=== PATIENT | female | born 1945 | race Two or more races ===

== ENCOUNTER 2022-06-17 11:14 | Inpatient (IN) | payer MEDICAID, OTHER ==
[~2022-06-17] VITALS: Ht 152.4 cm; Wt 80.8 kg
[2022-06-17] MEDS ORDERED: SODIUM CHLORIDE 0.9% 1,000 ML IV ONE (11:30)
[2022-06-17] MEDS ORDERED: dilTIAZem 25 MG/5 ML VIAL IV ONE ×2 (11:30→13:45)
[2022-06-17] MEDS ORDERED: ASPirin 81 mg TAB PO ONE (11:30)
[2022-06-17 12:10] LABS: Basophils # (auto) 0.1 10 ^3/uL (0-0.2); Basophils % (auto) 1.1 % (0.0-2.0); Eosinophils # (auto) 0 10 ^3/uL (0-0.8); Eosinophils % (auto) 0.7 % (0.0-7.0); Hematocrit 39.9 % (36.0-46.0); Hemoglobin 13.4 g/dL (12.2-16.2); Lymphocytes # (auto) 0.8 10 ^3/uL (0.4-5.4); Lymphocytes % (auto) 12.5 % (10.0-50.0); Mean Corpuscular Hemoglobin 30.3 pg (28.0-32.0); Mean Corpuscular Hgb Conc. 33.7 g/dL (32.0-36.0); Mean Corpuscular Volume 90.2 fL (80.0-100.0); Monocytes # (auto) 0.5 10 ^3/uL (0-1.3); Monocytes % (auto) 7.8 % (0.0-12.0); Neutrophils # (auto) 5.3 10 ^3/uL (1.6-8.6); Neutrophils % (auto) 77.9 % (37.0-80.0); Nucleated Red Blood Cells % 0.2 %; Red Blood Cells 4.42 10^6/uL (4.0-5.20); Red Cell Distribution Width 13.5 % (11.8-14.3); White Blood Cell 6.8 10^3/uL (4.4-10.8)
[2022-06-17 12:14] LABS: Albumin 3.6 g/dL (3.4-5.0); Calcium 8.3 mg/dL (8.5-10.1); Magnesium 2.1 mg/dL (1.6-2.6); Potassium 3.1 mmol/L (3.5-5.1)
[2022-06-17 12:19] LABS: BUN/Creatinine Ratio 14.5; Bilirubin, Total 1.2 mg/dL (0.2-1.0); Total Protein 7.6 g/dL (6.4-8.2)
[2022-06-17] MEDS ORDERED: FUROSEMIDE 40 MG/4 ML VIAL IV ONE (13:30)
[2022-06-17] MEDS ORDERED: dilTIAZem 125mg/125ml BAG KIT 125 ML IV ONE (13:45)
[2022-06-17] MEDS ORDERED: MORPHINE SULFATE INJ 2 MG/ml SYRG IV PRN (15:30)
[2022-06-17] MEDS ORDERED: NITROGLYCERIN 0.4 MG SL TAB SL PRN (15:30)
[2022-06-17] MEDS ORDERED: METOPROLOL SUCCINATE XL 50 MG TAB PO ONE (15:30)
[2022-06-17] MEDS ORDERED: POTASSIUM EFFERVESENT TAB 25 MEQ PO ONE ×2 (15:30→15:45)
[2022-06-17] MEDS ORDERED: ENOXAPARIN SOD 100 MG/1 ML SYRINGE SC ONE ×2 (15:30→15:45)
[2022-06-17] MEDS ORDERED: FUROSEMIDE 20 MG/2 ML VIAL IV ONE (15:45)
[2022-06-17] MEDS ORDERED: cefTRIAXone 1GM/50ML D5W 50 ML IV ONE (15:45)
[2022-06-17] MEDS ORDERED: AZITHROMYCIN 500MG/ 250ML 250 ML IV ONE (15:45)
[2022-06-17 16:14] LABS: Cholesterol 124 mg/dL (< 200)
[2022-06-17 16:15] LABS: HDL Cholesterol 46 mg/dL (40-59); LDL Cholesterol 80 mg/dL (< 100); Triglycerides 65 mg/dL (< 150)
[2022-06-17] MEDS: FUROSEMIDE 40 MG/4 ML VIAL IV SCH (18:14)
[2022-06-17 18:15] LABS: Urine Bacteria NONE SEEN /hpf (None Seen); Urine Hyaline Cast FEW /lpf (0 - 2); Urine Mucus FEW (None Seen); Urine WBC 1 /hpf (0 - 5)
[2022-06-17 18:17] LABS: Urine Blood Negative /uL (Negative)
[2022-06-17] MEDS ORDERED: ENOXAPARIN SOD 100 MG/1 ML SYRINGE SC SCH (22:00)
[2022-06-17] MEDS: ENOXAPARIN SOD 80 MG/0.8ML SYRINGE SC SCH (22:14)
[2022-06-17] MEDS: ATORVASTATIN 20 MG TAB PO SCH (22:14)
[2022-06-18] MEDS ORDERED: dilTIAZem 125mg/125ml BAG KIT 100 ML IV SCH (00:15)
[2022-06-18] MEDS ORDERED: IOHEXOL 350 MG/ML 100ML IJ ONE (00:31)
[2022-06-18 05:05] LABS: Basophils # (auto) 0.1 10 ^3/uL (0-0.2); Basophils % (auto) 0.9 % (0.0-2.0); Eosinophils # (auto) 0.1 10 ^3/uL (0-0.8); Eosinophils % (auto) 1.3 % (0.0-7.0); Hematocrit 37.1 % (36.0-46.0); Hemoglobin 12.9 g/dL (12.2-16.2); Mean Corpuscular Hemoglobin 31.3 pg (28.0-32.0); Mean Corpuscular Hgb Conc. 34.6 g/dL (32.0-36.0); Mean Corpuscular Volume 90.2 fL (80.0-100.0); Monocytes # (auto) 0.5 10 ^3/uL (0-1.3); Monocytes % (auto) 8.7 % (0.0-12.0); Neutrophils # (auto) 4.4 10 ^3/uL (1.6-8.6); Neutrophils % (auto) 72.1 % (37.0-80.0); Nucleated Red Blood Cells % 0.1 %; Red Blood Cells 4.12 10^6/uL (4.0-5.20)
[2022-06-18 05:21] LABS: Albumin 3.4 g/dL (3.4-5.0); Potassium 3.4 mmol/L (3.5-5.1)
[2022-06-18 05:26] LABS: BUN/Creatinine Ratio 19.4; Bilirubin, Total 0.7 mg/dL (0.2-1.0); Total Protein 7.3 g/dL (6.4-8.2)
[2022-06-18] MEDS: FUROSEMIDE 40 MG/4 ML VIAL IV SCH (06:45)
[2022-06-18] MEDS: cefTRIAXone 1GM/50ML D5W 50 ML IV SCH (08:31)
[2022-06-18] MEDS ORDERED: ASPirin 81 mg TAB PO SCH (10:00)
[2022-06-18] MEDS ORDERED: FUROSEMIDE 20 MG/2 ML VIAL IV SCH (10:00)
[2022-06-18] MEDS ORDERED: AZITHROMYCIN 500MG/ 250ML 250 ML IV SCH (10:00)
[2022-06-18] MEDS ORDERED: METOPROLOL SUCCINATE XL 50 MG TAB PO SCH (10:00)
[2022-06-18] MEDS: POTASSIUM CHL 10 Meq TABLET PO SCH (11:05)
[2022-06-18] MEDS: ENOXAPARIN SOD 80 MG/0.8ML SYRINGE SC SCH (11:05)
[2022-06-18] MEDS ORDERED: METOPROLOL TARTRATE 50 MG TAB PO ONE (17:00)
[2022-06-18 17:40] LABS: Hepatitis B Surface Antibody Negative (Negative)
[2022-06-18 18:18] LABS: Hepatitis A Total Antibody Positive (Negative)
[2022-06-18 18:58] LABS: Hepatitis C Antibody Negative (Negative)
[2022-06-18] MEDS ORDERED: dilTIAZem 25 MG/5 ML VIAL IV ONE (21:00)
[2022-06-18] MEDS: APIXABAN 5 MG TAB PO SCH (23:41)
[2022-06-18] MEDS: METOPROLOL TARTRATE 50 MG TAB PO SCH (23:41)
[2022-06-18] MEDS: ATORVASTATIN 20 MG TAB PO SCH (23:45)
[2022-06-19] MEDS ORDERED: dilTIAZem 125mg/125ml BAG KIT 125 ML IV SCH (00:15)
[2022-06-19] MEDS ORDERED: POTASSIUM EFFERVESENT TAB 25 MEQ PO ONE (07:45)
[2022-06-19] MEDS ORDERED: dilTIAZem HCL 180MG ER CAP PO ONE (07:45)
[2022-06-19] MEDS: cefTRIAXone 1GM/50ML D5W 50 ML IV SCH (09:58)
[2022-06-19] MEDS: APIXABAN 5 MG TAB PO SCH (10:10)
[2022-06-19] MEDS: METOPROLOL TARTRATE 50 MG TAB PO SCH ×2 (10:11→23:00)
[2022-06-19] MEDS: POTASSIUM CHL 10 Meq TABLET PO SCH (10:11)
[2022-06-19] MEDS: AZITHROMYCIN 250 MG TAB PO SCH (10:11)
[2022-06-19] MEDS ORDERED: FUROSEMIDE 40 MG/4 ML VIAL IV ONE (16:30)
[2022-06-19 22:00] VITALS: BP 141/83
[2022-06-19] MEDS: ATORVASTATIN 20 MG TAB PO SCH (22:57)
[2022-06-19] MEDS: ENOXAPARIN SOD 80 MG/0.8ML SYRINGE SC SCH (23:01)
[2022-06-20] VITALS (7 sets, daily range): BP systolic 128–173; BP diastolic 76–97
[2022-06-20 06:06] LABS: Basophils # (auto) 0.1 10 ^3/uL (0-0.2); Basophils % (auto) 0.9 % (0.0-2.0); Eosinophils # (auto) 0.1 10 ^3/uL (0-0.8); Eosinophils % (auto) 2.5 % (0.0-7.0); Hematocrit 37.5 % (36.0-46.0); Hemoglobin 12.6 g/dL (12.2-16.2); Lymphocytes # (auto) 1.2 10 ^3/uL (0.4-5.4); Lymphocytes % (auto) 20.6 % (10.0-50.0); Mean Corpuscular Hemoglobin 30.8 pg (28.0-32.0); Mean Corpuscular Hgb Conc. 33.6 g/dL (32.0-36.0); Mean Corpuscular Volume 91.7 fL (80.0-100.0); Monocytes # (auto) 0.6 10 ^3/uL (0-1.3); Monocytes % (auto) 9.6 % (0.0-12.0); Neutrophils # (auto) 3.8 10 ^3/uL (1.6-8.6); Neutrophils % (auto) 66.4 % (37.0-80.0); Red Blood Cells 4.09 10^6/uL (4.0-5.20); Red Cell Distribution Width 14.4 % (11.8-14.3); White Blood Cell 5.8 10^3/uL (4.4-10.8)
[2022-06-20 06:26] LABS: INR 1.08 (0.9-1.15); Partial Thromboplastin Time 37.3 sec (24.6-33.4)
[2022-06-20 06:34] LABS: BUN/Creatinine Ratio 36.2
[2022-06-20 06:35] LABS: Calcium 8.6 mg/dL (8.5-10.1)
[2022-06-20] MEDS: cefTRIAXone 1GM/50ML D5W 50 ML IV SCH (09:14)
[2022-06-20] MEDS: METOPROLOL TARTRATE 50 MG TAB PO SCH ×2 (09:15→21:13)
[2022-06-20] MEDS: ENOXAPARIN SOD 80 MG/0.8ML SYRINGE SC SCH ×2 (09:15→21:10)
[2022-06-20] MEDS: POTASSIUM CHL 10 Meq TABLET PO SCH (09:15)
[2022-06-20] MEDS: AZITHROMYCIN 250 MG TAB PO SCH (09:15)
[2022-06-20] MEDS: dilTIAZem HCL 180MG ER CAP PO SCH (09:15)
[2022-06-20] MEDS ORDERED: MET25T PO (10:05)
[2022-06-20] MEDS ORDERED: ASPirin 81 mg TAB PO ONE (11:45)
[2022-06-20] MEDS ORDERED: FUROSEMIDE 40 MG/4 ML VIAL IV ONE (11:45)
[2022-06-20] MEDS ORDERED: IPRATROPIUM BROM 0.5 MG/2.5ML INH SOL NEB PRN (12:00)
[2022-06-20] MEDS ORDERED: ALBUTEROL SULF 2.5 MG/0.5ML(0.5%) NEB SOLN NEB PRN (12:00)
[2022-06-20] MEDS ORDERED: DOCUSATE SOD 100 MG CAP PO PRN (12:30)
[2022-06-20] MEDS: hydrALAZINE HCL 20 MG/ML VL IV PRN (17:46)
[2022-06-20] MEDS: FUROSEMIDE 40 MG/4 ML VIAL IV SCH (17:46)
[2022-06-20] MEDS: ATORVASTATIN 20 MG TAB PO SCH (21:10)
[2022-06-21] MEDS: ALBUTEROL SULF 2.5 MG/0.5ML(0.5%) NEB SOLN NEB SCH ×4 (00:49→18:56)
[2022-06-21] MEDS: IPRATROPIUM BROM 0.5 MG/2.5ML INH SOL NEB SCH ×4 (00:50→18:56)
[2022-06-21 05:00] VITALS: BP 144/83
[2022-06-21] MEDS: FUROSEMIDE 40 MG/4 ML VIAL IV SCH ×2 (05:55→17:15)
[2022-06-21 08:00] VITALS: BP 156/89
[2022-06-21] MEDS: dilTIAZem HCL 180MG ER CAP PO SCH (08:25)
[2022-06-21] MEDS: ASPirin 81 mg TAB PO SCH (08:25)
[2022-06-21] MEDS: AZITHROMYCIN 250 MG TAB PO SCH (08:26)
[2022-06-21] MEDS: METOPROLOL TARTRATE 50 MG TAB PO SCH ×2 (08:26→22:00)
[2022-06-21] MEDS: POTASSIUM CHL 10 Meq TABLET PO SCH (08:26)
[2022-06-21] MEDS: cefTRIAXone 1GM/50ML D5W 50 ML IV SCH (08:27)
[2022-06-21] MEDS: ENOXAPARIN SOD 80 MG/0.8ML SYRINGE SC SCH ×2 (08:27→22:00)
[2022-06-21 12:00] VITALS: BP 149/93
[2022-06-21 16:00] VITALS: BP 149/77
[2022-06-21 22:00] VITALS: BP 138/87
[2022-06-21] MEDS: ATORVASTATIN 20 MG TAB PO SCH (22:00)
[2022-06-22] MEDS: ALBUTEROL SULF 2.5 MG/0.5ML(0.5%) NEB SOLN NEB SCH ×4 (00:39→20:05)
[2022-06-22] MEDS: IPRATROPIUM BROM 0.5 MG/2.5ML INH SOL NEB SCH ×4 (00:39→20:05)
[2022-06-22 05:00] VITALS: BP 165/89
[2022-06-22] MEDS: hydrALAZINE HCL 20 MG/ML VL IV PRN (06:11)
[2022-06-22] MEDS: FUROSEMIDE 40 MG/4 ML VIAL IV SCH ×2 (06:12→18:02)
[2022-06-22] MEDS: cefTRIAXone 1GM/50ML D5W 50 ML IV SCH (08:07)
[2022-06-22 08:08] VITALS: BP 135/64
[2022-06-22 09:00] VITALS: BP 135/64
[2022-06-22] MEDS: ASPirin 81 mg TAB PO SCH (10:58)
[2022-06-22] MEDS: POTASSIUM CHL 10 Meq TABLET PO SCH (10:58)
[2022-06-22] MEDS: AZITHROMYCIN 250 MG TAB PO SCH (10:58)
[2022-06-22] MEDS: METOPROLOL TARTRATE 50 MG TAB PO SCH ×2 (10:59→22:13)
[2022-06-22] MEDS: dilTIAZem HCL 180MG ER CAP PO SCH (10:59)
[2022-06-22] MEDS: ENOXAPARIN SOD 80 MG/0.8ML SYRINGE SC SCH ×2 (11:00→22:17)
[2022-06-22 14:14] VITALS: BP 142/69
[2022-06-22 16:52] VITALS: BP 136/71
[2022-06-22 22:00] VITALS: BP 158/108
[2022-06-22] MEDS: ATORVASTATIN 20 MG TAB PO SCH (22:12)
[2022-06-23] VITALS (8 sets, daily range): BP systolic 94–155; BP diastolic 56–106
[2022-06-23] MEDS: ALBUTEROL SULF 2.5 MG/0.5ML(0.5%) NEB SOLN NEB SCH ×5 (00:05→23:51)
[2022-06-23] MEDS: IPRATROPIUM BROM 0.5 MG/2.5ML INH SOL NEB SCH ×5 (00:05→23:51)
[2022-06-23] MEDS: FUROSEMIDE 40 MG/4 ML VIAL IV SCH ×2 (05:21→17:15)
[2022-06-23] MEDS: hydrALAZINE HCL 20 MG/ML VL IV PRN (05:22)
[2022-06-23 06:12] LABS: Basophils # (auto) 0.1 10 ^3/uL (0-0.2); Basophils % (auto) 0.8 % (0.0-2.0); Eosinophils # (auto) 0.3 10 ^3/uL (0-0.8); Eosinophils % (auto) 3.8 % (0.0-7.0); Hematocrit 40.3 % (36.0-46.0); Hemoglobin 13.9 g/dL (12.2-16.2); Lymphocytes # (auto) 2.2 10 ^3/uL (0.4-5.4); Lymphocytes % (auto) 29.7 % (10.0-50.0); Mean Corpuscular Hemoglobin 30.8 pg (28.0-32.0); Mean Corpuscular Hgb Conc. 34.5 g/dL (32.0-36.0); Mean Corpuscular Volume 89.3 fL (80.0-100.0); Monocytes # (auto) 0.6 10 ^3/uL (0-1.3); Monocytes % (auto) 7.8 % (0.0-12.0); Neutrophils # (auto) 4.3 10 ^3/uL (1.6-8.6); Neutrophils % (auto) 57.9 % (37.0-80.0); Nucleated Red Blood Cells % 0.2 %; Red Blood Cells 4.52 10^6/uL (4.0-5.20); Red Cell Distribution Width 13.8 % (11.8-14.3); White Blood Cell 7.5 10^3/uL (4.4-10.8)
[2022-06-23 06:25] LABS: INR 1.07 (0.9-1.15); Partial Thromboplastin Time 38.9 sec (24.6-33.4)
[2022-06-23 06:30] LABS: BUN/Creatinine Ratio 25.6; Calcium 8.7 mg/dL (8.5-10.1)
[2022-06-23 06:39] LABS: Potassium 2.9 mmol/L (3.5-5.1)
[2022-06-23] MEDS ORDERED: GADOTERATE MEG 10 MMOL/20ml INJ (0.5MMOL/ml) IV ONE (08:21)
[2022-06-23] MEDS ORDERED: POTASSIUM CHL 20 Meq TABLET PO ONE (08:30)
[2022-06-23] MEDS: cefTRIAXone 1GM/50ML D5W 50 ML IV SCH (09:14)
[2022-06-23] MEDS: ASPirin 81 mg TAB PO SCH (09:15)
[2022-06-23] MEDS: dilTIAZem HCL 180MG ER CAP PO SCH (09:15)
[2022-06-23] MEDS: METOPROLOL TARTRATE 50 MG TAB PO SCH ×2 (09:16→22:35)
[2022-06-23] MEDS: AZITHROMYCIN 250 MG TAB PO SCH (09:16)
[2022-06-23] MEDS: POTASSIUM CHL 10 Meq TABLET PO SCH (09:16)
[2022-06-23] MEDS: ENOXAPARIN SOD 80 MG/0.8ML SYRINGE SC SCH ×2 (09:56→23:34)
[2022-06-23] MEDS: ATORVASTATIN 20 MG TAB PO SCH (22:35)
[2022-06-24] VITALS (9 sets, daily range): BP systolic 122–138; BP diastolic 61–88
[2022-06-24] MEDS: FUROSEMIDE 40 MG/4 ML VIAL IV SCH ×2 (06:00→18:00)
[2022-06-24] MEDS: IPRATROPIUM BROM 0.5 MG/2.5ML INH SOL NEB SCH ×4 (06:01→19:02)
[2022-06-24] MEDS: ALBUTEROL SULF 2.5 MG/0.5ML(0.5%) NEB SOLN NEB SCH ×4 (06:01→19:02)
[2022-06-24 06:40] LABS: Basophils # (auto) 0.1 10 ^3/uL (0-0.2); Eosinophils # (auto) 0.3 10 ^3/uL (0-0.8); Eosinophils % (auto) 4.3 % (0.0-7.0); Hematocrit 37.8 % (36.0-46.0); Hemoglobin 12.9 g/dL (12.2-16.2); Lymphocytes # (auto) 2.2 10 ^3/uL (0.4-5.4); Lymphocytes % (auto) 30.3 % (10.0-50.0); Mean Corpuscular Hgb Conc. 34.2 g/dL (32.0-36.0); Mean Corpuscular Volume 90.7 fL (80.0-100.0); Monocytes # (auto) 0.7 10 ^3/uL (0-1.3); Monocytes % (auto) 9.4 % (0.0-12.0); Red Blood Cells 4.17 10^6/uL (4.0-5.20); Red Cell Distribution Width 14.1 % (11.8-14.3); White Blood Cell 7.2 10^3/uL (4.4-10.8)
[2022-06-24 07:05] LABS: Albumin 3.1 g/dL (3.4-5.0); BUN/Creatinine Ratio 30.5; Calcium 8.7 mg/dL (8.5-10.1); Potassium 4.1 mmol/L (3.5-5.1)
[2022-06-24 07:08] LABS: Bilirubin, Total 0.6 mg/dL (0.2-1.0); Total Protein 6.8 g/dL (6.4-8.2)
[2022-06-24] MEDS: POTASSIUM CHL 10 Meq TABLET PO SCH (10:00)
[2022-06-24] MEDS: ENOXAPARIN SOD 80 MG/0.8ML SYRINGE SC SCH ×2 (10:00→22:00)
[2022-06-24] MEDS: ASPirin 81 mg TAB PO SCH (10:13)
[2022-06-24] MEDS: METOPROLOL TARTRATE 50 MG TAB PO SCH ×2 (10:14→23:11)
[2022-06-24] MEDS: dilTIAZem HCL 180MG ER CAP PO SCH (10:14)
[2022-06-24] MEDS ORDERED: IOHEXOL 350 MG/ML 100ML IJ ONE (17:45)
[2022-06-24] MEDS ORDERED: LIDOCAINE 2%HCL (LOCAL ANESTH.) INJ 20ML MDV ONE (17:45)
[2022-06-24] MEDS ORDERED: fentaNYL CITRATE 100 MCG/2 ML VL ONE (17:50)
[2022-06-24] MEDS ORDERED: VERAPAMIL 2.5MG/ML INJ 2ML VIAL IV ONE (17:50)
[2022-06-24] MEDS ORDERED: ANGIOMAX 250 MG VIAL IV ONE (17:50)
[2022-06-24] MEDS ORDERED: MIDAZOLAM HCL 2MG/2ML 2ml VIAL (1mg/ml) ONE (17:50)
[2022-06-24] MEDS ORDERED: SODIUM CHL 0.9% 0 ML ONE (17:51)
[2022-06-24] MEDS ORDERED: HEPARIN SODIUM (PORCINE) 5000 UNITS/ML 1ML VIAL ONE (19:03)
[2022-06-24] MEDS: ATORVASTATIN 20 MG TAB PO SCH (23:11)
[2022-06-25] MEDS: ALBUTEROL SULF 2.5 MG/0.5ML(0.5%) NEB SOLN NEB SCH ×3 (00:31→12:33)
[2022-06-25] MEDS: IPRATROPIUM BROM 0.5 MG/2.5ML INH SOL NEB SCH ×3 (00:32→12:33)
[2022-06-25 05:00] VITALS: BP 163/64
[2022-06-25] MEDS: FUROSEMIDE 40 MG/4 ML VIAL IV SCH (06:07)
[2022-06-25] MEDS: hydrALAZINE HCL 20 MG/ML VL IV PRN (06:07)
[2022-06-25 08:00] VITALS: BP 139/87
[2022-06-25 09:00] VITALS: BP 139/87
[2022-06-25] MEDS: METOPROLOL TARTRATE 50 MG TAB PO SCH (11:10)
[2022-06-25] MEDS: ASPirin 81 mg TAB PO SCH (11:14)
[2022-06-25] MEDS: POTASSIUM CHL 10 Meq TABLET PO SCH (11:14)
[2022-06-25] MEDS: ENOXAPARIN SOD 80 MG/0.8ML SYRINGE SC SCH (11:14)
[2022-06-25] MEDS: dilTIAZem HCL 180MG ER CAP PO SCH (11:14)
[2022-06-25 13:00] VITALS: BP 128/74
[2022-06-25 16:19] VITALS: BP 139/87
[2022-06-25 16:43] VITALS: BP 128/88
== END 2022-06-25 17:15 | disposition home or self-care (01) | DRG 192 ==
LOC: ER 11:14 → TELE 15:28 → DOU IN ICU 06-19 08:06 → TELE 06-19 08:26 → TELE-EAST 06-19 21:30
PROVIDERS: ADMIT Registered Nurse; ATTEND Student in an Organized Health Care Education/Training Program
PROC: 4A023N7 Measurement of Cardiac Sampling and Pressure, Left Heart, Percutaneous Approach (ICD-10-PCS; principal; 2022-06-24)
PROC: B2111ZZ Fluoroscopy of Multiple Coronary Arteries using Low Osmolar Contrast (ICD-10-PCS; 2022-06-24)
PROC: B2151ZZ Fluoroscopy of Left Heart using Low Osmolar Contrast (ICD-10-PCS; 2022-06-24)
DX: I48.19 Other persistent atrial fibrillation (principal); J96.01 Acute respiratory failure with hypoxia; J15.6 Pneumonia due to other Gram-negative bacteria; N17.9 Acute kidney failure, unspecified; I11.0 Hypertensive heart disease with heart failure; K76.89 Other specified diseases of liver; I50.9 Heart failure, unspecified; E87.6 Hypokalemia; A08.4 Viral intestinal infection, unspecified; E66.01 Morbid (severe) obesity due to excess calories; Z68.34 Body mass index [BMI] 34.0-34.9, adult; Z20.822 Contact with and (suspected) exposure to COVID-19; E11.9 Type 2 diabetes mellitus without complications; J06.9 Acute upper respiratory infection, unspecified; N28.89 Other specified disorders of kidney and ureter; N85.8 Other specified noninflammatory disorders of uterus; Z90.710 Acquired absence of both cervix and uterus
CPT/HCPCS: 36415; 36600; 71045; 74177; 74183; 76705; 80048; 80053; 80061; 81001; 82805; 83036; 83735; 83880; 84132; 84443; 84484; 85025; 85379; 85610; 85730; 86704; 86706; 86708; 86803; 86850; 86900; 86901; 87040; 87070; 87086; 87205; 87340; 87426; 87804; 93005; 93306; 93458; 94640; 96365; 96366; 96368; 96372; 96375; 96376; 99152; 99153; 99291; G0378; J0696; J2250